=== PATIENT | female | born 1955 | race Caucasian/White ===

== ENCOUNTER 2019-01-28 01:11 | Emergency (ER) | payer MEDICAID, MEDICARE ==
[~2019-01-28] VITALS: Ht 162.6 cm; Wt 57.0 kg
[~2019-01-28 01:11] MED LIST: ALPR1TAB2 PO; GLIM4TAB4 PO; ROPI1TAB PO; TRAZ50TA66 PO
[2019-01-28] MEDS ORDERED: MORPHINE SULFATE 4 MG/ML, 1ML IVPush PRN (01:30)
[2019-01-28] MEDS ORDERED: SODIUM CHLORIDE 0.9% 1,000ML IVBOLUS ONE ×2 (01:30)
[2019-01-28] MEDS ORDERED: SODIUM CHLORIDE FLUSH 10ML SYR IVF ONE (01:30)
[2019-01-28 01:48] LABS: PH, VENOUS 7.382 pH (7.320-7.420)
[2019-01-28 01:49] LABS: BASOPHILS # (AUTO) 0.02 x10^3/uL (0-0.1); BASOPHILS % (AUTO) 0 % (0-1); EOSINOPHILS # (AUTO) 0.13 x10^3/uL (0-0.4); EOSINOPHILS % (AUTO) 1 % (1-7); LYMPHOCYTES # (AUTO) 2.44 x10^3/uL (1-3.4); LYMPHOCYTES % (AUTO) 25 % (22-44); MD NO; MEAN CORPUSCULAR HGB CONC 33.7 g/dL (32.4-35.8); MONOCYTES # (AUTO) 0.49 x10^3/uL (0.2-0.8); MONOCYTES % (AUTO) 5 % (2-9); NEUTROPHILS # (AUTO) 6.58 x10^3/uL (1.8-6.8); NEUTROPHILS % (AUTO) 68 % (42-75); PLATELET COUNT 341 x10^3/uL (130-400); RED BLOOD COUNT 4.58 x10^6/uL (3.82-5.3); RED CELL DISTRIBUTION WIDTH 13.1 % (9.6-15.2)
[2019-01-28 02:01] LABS: ALANINE AMINOTRANSFERASE 24 U/L (12-78); ANION GAP 13 mmol/L (5-15); CALCIUM 8.7 mg/dL (8.5-10.1); CHLORIDE 97 mmol/L (98-107); CREATININE 0.83 mg/dL (0.55-1.02)
[2019-01-28 02:04] LABS: ALKALINE PHOSPHATASE 84 U/L (45-117); BILIRUBIN,TOTAL 0.6 mg/dL (0.2-1.0); TOTAL PROTEIN 7.9 g/dL (6.4-8.2)
[2019-01-28 02:08] LABS: HEMOGLOBIN A1C 14.9 % (4.2-6.3)
[2019-01-28] MEDS ORDERED: MORPHINE SULFATE 4 MG/ML, 1ML ONE (02:18)
[2019-01-28] MEDS ORDERED: INSULIN SINGLE DOSE, ER ONE (02:18)
[2019-01-28] MEDS ORDERED: ONDANSETRON 2MG/ML, 2ML ONE (02:18)
[2019-01-28] MEDS ORDERED: INSULIN REGULAR 100 UNITS/ML, 3ML VIAL IVPush ONE (02:30)
[2019-01-28] MEDS ORDERED: ONDANSETRON 2MG/ML, 2ML IVPush ONE (02:30)
[2019-01-28 02:51] LABS: ACETONE, SERUM Small (20mg/dL) mg/dL (Negative)
[2019-01-28 03:21] VITALS: BP 148/75
[2019-01-28] MEDS ORDERED: KETOROLAC 30 MG/1 ML ONE (03:25)
[2019-01-28] MEDS ORDERED: KETOROLAC 30 MG/1 ML IVPush ONE (04:30)
== END 2019-01-28 05:29 | disposition home or self-care (01) ==
LOC: ED 02:45
DX: S06.0X9A Concussion with loss of consciousness of unspecified duration, initial encounter (principal); M25.571 Pain in right ankle and joints of right foot; M79.673 Pain in unspecified foot; E11.65 Type 2 diabetes mellitus with hyperglycemia; W18.39XA Other fall on same level, initial encounter; Y93.89 Activity, other specified; Y92.89 Other specified places as the place of occurrence of the external cause; Y99.8 Other external cause status
CPT/HCPCS: 36415; 70450; 71045; 72125; 73502; 73610; 73630; 80053; 80307; 82010; 82803; 82962; 83036; 85025; 93005; 96361; 96374; 96375; 99284; J1815; J1885; J2270; J2405; J7030

== ENCOUNTER 2019-10-10 11:43 | Emergency (ER) | payer MEDICARE, MEDICAID ==
[~2019-10-10] VITALS: Ht 160 cm; Wt 55.9 kg
[~2019-10-10 11:43] MED LIST changes: -GLIM4TAB4 PO; +GLIM4TAB8 PO
--- NOTE | 2019-10-10 12:16 | NUR ---
Pt had GLF yesterday with pain to L chest/flank. Pain worse with breathing. No obvious trauma.
[2019-10-10] MEDS ORDERED: MORPHINE SULFATE 4 MG/ML, 1ML IVPush PRN (12:30)
[2019-10-10] MEDS ORDERED: SODIUM CHLORIDE FLUSH 10ML SYR IVF ONE (12:30)
[2019-10-10] MEDS ORDERED: SODIUM CHLORIDE 0.9% 1,000ML IVBOLUS ONE (12:30)
[2019-10-10] MEDS ORDERED: MORPHINE SULFATE 4 MG/ML, 1ML ONE (13:16)
[2019-10-10 13:27] LABS: BASOPHILS # (AUTO) 0.02 x10^3/uL (0-0.1); BASOPHILS % (AUTO) 0 % (0-1); EOSINOPHILS # (AUTO) 0.05 x10^3/uL (0-0.4); EOSINOPHILS % (AUTO) 1 % (1-7); LYMPHOCYTES # (AUTO) 1.88 x10^3/uL (1-3.4); LYMPHOCYTES % (AUTO) 39 % (22-44); MD NO; MEAN CORPUSCULAR HEMOGLOBIN 30.3 pg (27.0-34.8); MEAN CORPUSCULAR HGB CONC 34.5 g/dL (32.4-35.8); MEAN CORPUSCULAR VOLUME 88.1 fL (80-100); MEAN PLATELET VOLUME 7.1 fL (7.4-10.4); MONOCYTES # (AUTO) 0.33 x10^3/uL (0.2-0.8); MONOCYTES % (AUTO) 7 % (2-9); NEUTROPHILS # (AUTO) 2.61 x10^3/uL (1.8-6.8); NEUTROPHILS % (AUTO) 53 % (42-75); PLATELET COUNT 299 x10^3/uL (130-400); RED BLOOD COUNT 4.33 x10^6/uL (3.82-5.3); RED CELL DISTRIBUTION WIDTH 13.2 % (9.6-15.2)
[2019-10-10 13:31] LABS: ANION GAP 12 mmol/L (5-15); CALCIUM 9.4 mg/dL (8.5-10.1); CHLORIDE 100 mmol/L (98-107); CREATININE 0.86 mg/dL (0.55-1.02)
[2019-10-10] MEDS ORDERED: morphine SULFATE 10 MG/ML, 1ML ONE (14:00)
[2019-10-10] MEDS ORDERED: morphine SULFATE 10 MG/ML, 1ML IVPush ONE (14:00)
[2019-10-10] MEDS ORDERED: INSULIN SINGLE DOSE, ER ONE (14:01)
--- NOTE | 2019-10-10 14:18 | NUR ---
Dual RN sign off for IV insulin
[2019-10-10] MEDS ORDERED: INSULIN REGULAR 100 UNITS/ML, 3ML VIAL IVPush ONE (14:30)
--- NOTE | 2019-10-10 15:27 | NUR ---
BG 268. BP improved. Pt states feeling better.
[2019-10-10 15:38] VITALS: BP 152/78
== END 2019-10-10 15:41 | disposition home or self-care (01) ==
LOC: ED 13:33
DX: S20.212A Contusion of left front wall of thorax, initial encounter (principal); E11.65 Type 2 diabetes mellitus with hyperglycemia; R94.31 Abnormal electrocardiogram [ECG] [EKG]; W22.8XXA Striking against or struck by other objects, initial encounter; Y93.89 Activity, other specified; Y92.89 Other specified places as the place of occurrence of the external cause; Y99.8 Other external cause status
CPT/HCPCS: 36415; 71101; 80048; 82040; 82962; 85025; 93005; 96361; 96374; 96375; 96376; 99285; J1815; J2270; J7030